=== PATIENT | female | born 1985 | race Caucasian/White ===

== ENCOUNTER 2017-11-28 14:17 | Emergency (ER) | payer BC ==
[2017-11-28] MEDS ORDERED: 0.9 % SODIUM CHLORIDE 1000ML 1,000 ML IV PRN (14:39)
--- NOTE | 2017-11-28 14:46 | Emergency Department Record ---
History of Present Illness - General Chief Complaint: Shortness of breath Stated Complaint: TROUBLE BREATHING Time Seen by Provider: 11/28/17 14:39 Source: Patient ( at bedside) Mode of Arrival: Ambulatory Limitations: No limitations - History of Present Illness Initial Comments: Pt ot ED with with complaint of woke this AM with achest pain "like something on my chest". Pt feels it is painful to breath. She has no cough, fever, hemoptysis, nausea, or vomiting. There is no complaint of pain to neck, shoulder or jaw. She does have pain down the anterior portion of each upper leg. Pt is a non smoker without DM. She is on control since 15 years old , no recent prolonged travel, immobilization, or surgery. MD Complaint: Chest pain, Pain with inspiration Onset/Timin -: Hour(s), Awoke with symptoms Radiation: Other (anterior legs) Severity: Moderate Severity scale (1-10): 6 Quality: Aching, Crushing Consistency: Constant Improves With: Nothing Worsens With: Nothing Associated Symptoms: lower extremity pain Treatments Prior to Arrival: None, Bronchodilator - Related Data Home Oxygen Therapy: No Allergies Allergy/AdvReac Type Severity Reaction Status Date / Time prochlorperazine Allergy panic Verified 11/28/17 14:26 [From Compazine] attack Sulfa (Sulfonamide Allergy HIVES Verified 11/28/17 14:26 Antibiotics) Travel Screening - Travel/Exposure Within Last 30 Days Have you traveled within the last 30 days?: No Review of Systems Constitutional: Denies: Chills, Fever, Malaise Eyes: Denies: Eye discharge, Photophobia ENT: Denies: Congestion, Throat pain Respiratory: Denies: Cough, Hemoptysis, Wheezes Cardiovascular: Reports: Chest pain. Denies: Arrhythmia, Edema, Orthopnea, Palpitations, Syncope Endocrine: Denies: Fatigue Gastrointestinal: Denies: Abdominal pain, Diarrhea, Vomiting Genitourinary: Denies: Abnormal menses Musculoskeletal: Denies: Arthralgia Skin: Denies: Bruising, Rash Neurological: Denies: Abnormal gait Psychiatric: Denies: Anxiety Hematological/Lymphatic: Denies: Anemia Past Medical History - SOCIAL HISTORY Smoking Status: Never smoker Alcohol Use: None Drug Use: None - RESPIRATORY Hx Respiratory Disorders: No - CARDIOVASCULAR Hx Cardio Disorders: No - NEURO Hx Neuro Disorders: No - GI Hx GI Disorders: No - Hx Genitourinary Disorders: No - ENDOCRINE Hx Endocrine Disorders: No - MUSCULOSKELETAL Hx Musculoskeletal Disorders: No - PSYCH Hx Psych Problems: No - HEMATOLOGY/ONCOLOGY Hx Hematology/Oncology Disorders: No Family Medical History Any Significant Family History?: No Physical Exam - General General Appearance: Alert, Oriented x3, Cooperative, Mild distress Limitations: No limitations - Head Head exam: Atraumatic - Eye Eye exam: Normal appearance, PERRL. negative: Nystagmus - ENT ENT exam: Normal exam, Mucous membranes moist, Normal external ear exam, Normal orophraynx, TM's normal bilaterally - Neck Neck exam: Normal inspection. negative: Thyromegaly - Respiratory Respiratory exam: Normal lung sounds bilaterally. negative: Accessory muscle use, Chest wall tenderness, Respiratory distress, Rhonchi, Wheezes - Cardiovascular Cardiovascular Exam: Normal rhythm, Tachycardia Peripheral Pulses: 2+: Radial (R), Radial (L) - GI/Abdominal GI/Abdominal exam: Soft. negative: Rebound, Tenderness - Rectal Rectal exam: Deferred - exam: Deferred - Extremities Extremities exam: Normal inspection. negative: Calf tenderness, Tenderness - Back Back exam: Reports: Normal inspection - Neurological Neurological exam: Alert, Normal gait, Oriented X3 - Psychiatric Psychiatric exam: Normal affect, Normal mood - Skin Skin exam: Normal color Course Vital Signs 11/28/17 14:23 Temperature 98.2 F Pulse Rate 131 H Respiratory 18 Rate Blood Pressure 136/98 Pulse Ox 98 - Reevaluation(s) Reevaluation #1: 11/28/17 15:20 Pt resting with VSS, on monitor with O2. Discussed elevated WBC and BC x 2 obtained. D dimer .52 plan for CTA of chest for PE. Pt aware of my concerns and agrees. 11/28/17 16:49 Pt feeling slightly better. Radiologist states "Inadequate bolus with CTA. Request repeat due to clinical concern. Discussed with patient. agrees with repeat scan. 11/28/17 17:[address] without cental PE. Can not rule out perif. PE. CXR clear. UA with infection. Rocephine given. WBC elevate. Pt continues with chest pressue with nl EKG and neg trop. Discussed my concern with CP and 26K WBC/UTI. No fevers no urinary complaints. I would like the patient to be admitted for continued monitoring and IV AB with repeat labs in AM. Pt prefers home with but I have suggested she stay. 11/28/17 18:17 Pt needs admission for VQ in AM. Lovenox given and plan to [facility] with Dr. Padgett. Pt and aware. Procedures - EKG Initial Date: 11/28/17 Time: 15:01 EKG: Abnormal EKG (ST at 116 inverted T III and anterior septal.) Medical Decision Making - Data Complexity MDM Data: Labs Ordered and/or Reviewed, X-Ray Ordered and/or Reviewed, EKG Ordered and/or Reviewed, Independent Visualization of Image, Tracing, or Specimen - Lab Data Result diagrams: 11/28/17 14:40 11/28/17 14:40 - Radiology Data Radiology results: Image reviewed -: Radiology Exam Interpreted by Myself (CXR no acute process. ) Critical Care Time Critical Care Time: Yes (multiple rechecks and meds r/o PE) Total Critical Care Time: 25 Disposition Disposition: Transfer Clinical Impression: Leukocytosis, Tachypnea Chest pain Qualifiers: Chest pain type: precordial pain Qualified Code(s): R07.2 - Precordial pain UTI (urinary tract infection) Qualifiers: Urinary tract infection type: acute cystitis Disposition: Acute Care Hospital Transfer Decision to Admit Date: 11/28/17 Decision to Admit Time: 18:15 Transfer To: [facility] Reason For Transfer: Need for VQ to rule out PE Accepting Physician: Dr. Naty Padgett Time Discussed w/Accepting Physician: 18:16 Condition: (3) Guarded Forms: Patient Portal Access Quality - Quality Measures Quality Measures: N/A - Blood Pressure Screening Does Patient Have Any of the Following: No Blood Pressure Classification: Hypertensive Reading Systolic Measurement: 136 Diastolic Measurement: 98 Screening for High Blood Pressure: < Pre-Hypertensive BP, F/U Documented > [ [id number]] Pre-Hypertensive Follow-up Interventions: Follow-up with rescreen every year.
[2017-11-28] MEDS: ASPIRIN 81 MG CHEWABLE TABLET PO ONE (14:55)
[2017-11-28 14:56] LABS: HEMATOCRIT 40.3 % (35.0-47.0); HEMOGLOBIN 13.7 gm/dl (11.6-16.0); MEAN CELL VOLUME 88.4 fl (81-97); MEAN PLATELET VOLUME 10.5 fl (7.4-10.4); PLATELET COUNT 323 K/uL (130-400); RED BLOOD COUNT 4.56 M/uL (3.80-5.40); RED CELL DISTRIBUTION WIDTH 12.4 % (11.5-14.5)
[2017-11-28 15:07] LABS: BLOOD UREA NITROGEN 10 mg/dL (6-20); CREATININE 0.6 mg/dL (0.5-0.9); EST GLOMERULAR FILTRATION RATE > 60 mL/min
[2017-11-28 15:08] LABS: PARTIAL THROMBOPLASTIN TIME 24.7 SECONDS (24.5-39.1); PROTHROMBIN TIME (PATIENT) 10.3 SECONDS (9.5-12.1)
[2017-11-28 15:09] LABS: WHITE BLOOD COUNT W/O DIFF 26.5 K/uL (4.2-12.2)
[2017-11-28 15:10] LABS: GLUCOSE,RANDOM 107 mg/dL (74-109)
[2017-11-28 15:24] LABS: THYROID STIMULATING HORMONE 0.78 uIU/mL (0.270-4.20)
[2017-11-28 16:47] LABS: URINE BILIRUBIN NEGATIVE (NEGATIVE); URINE BLOOD NEGATIVE (NEGATIVE); URINE COLOR YELLOW; URINE GLUCOSE (UA) NEGATIVE (NEGATIVE); URINE KETONE NEGATIVE (NEGATIVE); URINE LEUKOCYTE ESTERASE NEGATIVE (NEGATIVE); URINE NITRITE POSITIVE (NEGATIVE); URINE PROTEIN NEGATIVE (NEGATIVE); URINE UROBILINOGEN 0.2 E.U./dL (0.20 - 1.00)
[2017-11-28 16:48] LABS: URINE APPEARANCE SL CLOUDY
[2017-11-28 17:00] LABS: URINE RBC 0 - 2 (NONE SEEN)
[2017-11-28 17:01] LABS: URINE BACTERIA 3+
[2017-11-28] MEDS ORDERED: CEFTRIAXONE 1 GRAM VIAL IM ONE (17:29)
[2017-11-28] MEDS: CEFTRIAXONE SODIUM 1 GM in 0.9 % SODIUM CHLORIDE 100ML 100 ML IVPB ONE (17:44)
[2017-11-28] MEDS: MORPHINE SULFATE 10 MG/ML VIAL IVP ONE (17:48)
[2017-11-28] MEDS ORDERED: HEPARIN SODIUM 1000 UNIT/1 ML 10ML VIAL IVP ONE (18:01)
[2017-11-28] MEDS: ENOXAPARIN 100 MG/ML SYR SQ ONE (18:20)
--- NOTE | 2017-11-29 13:15 | RADIOLOGY REPORT ---
EXAM: CHEST, TWO VIEWS HISTORY: DIFFICULTY BREATHING. TECHNIQUE: Frontal and lateral views of the chest were performed. FINDINGS: The heart size is normal. The lung rosas are clear. The osseous structures are normal. IMPRESSION: NEGATIVE CHEST EXAMINATION. JOB NUMBER: [id number] MTDD
--- NOTE | 2017-11-29 13:55 | CT ANGIOGRAM REPORT ---
EXAM: CT ANGIOGRAM OF THE CHEST HISTORY: SHORTNESS OF BREATH. CHEST HEAVINESS. TECHNIQUE: Standard CT angiogram of the chest after administration of intravenous contrast was completed. Coronal and sagittal post processed images were obtained. Comparison: None. Encounter: Initial. FINDINGS: There is some motion artifact limiting evaluation of the aorta. No gross aortic aneurysm is seen. I do not see evidence of significant mediastinal fluid collections. I do not see evidence of mediastinal adenopathy. The heart displays no evidence of enlargement. I do not see pericardial fluid collections. There is no evidence of right heart strain. The pulmonary artery bolus is suboptimal for evaluation of mid to peripheral pulmonary embolism due to timing and low contrast attenuation. I do not see evidence of central pulmonary embolism. Peripheral pulmonary embolism would be difficult to exclude on this study. The lungs display no evidence of pneumothorax. I do not see evidence of pneumomediastinum. No evidence of infiltrates, edema, or significant effusions. The upper abdomen displays no acute process. The axillary regions appear without evidence of abnormal adenopathy. The visualized portions of the chest wall and thyroid gland appear intact. The spinal column displays mild degenerative disease. No bony destructive process. IMPRESSION: 1. PULMONARY ARTERY BOLUS IS VERY SUBOPTIMAL IN THE MID TO DISTAL PULMONARY ARTERIES. SMALL POSSIBLY CLINICALLY SIGNIFICANT PULMONARY EMBOLISM IS NOT COMPLETE EXCLUDED ON THIS STUDY. NO PROXIMAL PULMONARY EMBOLISM IS IDENTIFIED. IF THERE IS STRONG CLINICAL CONCERN THIS STUDY COULD BE REPEATED VERSUS VENTILATION PERFUSION SCAN CLINICALLY INDICATED. 2. NO EVIDENCE OF MEDIASTINAL ADENOPATHY, MASS OR FREE FLUID. NO GROSS AORTIC ANEURYSM OR DISSECTION. 3. THE LUNGS APPEAR CLEAR. THE SURROUNDING SOFT TISSUES AND UPPER ABDOMEN APPEAR GROSSLY INTACT. NO OTHER ACUTE PROCESS. JOB NUMBER: [id number] ADDENDUM: The patient was brought back and re-bolused with contrast due to limited contrast bolus on the initial study. The contrast bolus is somewhat improved. There is still significant motion and breathing artifact within the mid peripheral pulmonary arteries. Small peripheral pulmonary artery embolism still is not excluded on this study. The lungs are, however, clear without evidence of pulmonary infarct or significant effusion. The tracheobronchial tree appears intact. Given difficulty in visualizing the pulmonary arteries due to motion artifact and other factors, ventilation perfusion study may add additional value as clinically indicated. JOB NUMBER: [id number] [facility]
== END 2017-11-28 19:50 | disposition short-term general hospital (02) ==
LOC: ER 14:17
DX: R07.2 Precordial pain (principal); D72.829 Elevated white blood cell count, unspecified; R06.82 Tachypnea, not elsewhere classified; N30.00 Acute cystitis without hematuria; M79.652 Pain in left thigh; M79.651 Pain in right thigh; R06.02 Shortness of breath
CPT/HCPCS: 71046; 71275; 80048; 81001; 84443; 84484; 84703; 85027; 85379; 85610; 85651; 85730; 93005; 93010; 96365; 96372; 96375; 99285; J1650; J2270